=== PATIENT | male | born 1970 | race Caucasian/White ===

== ENCOUNTER 2017-04-21 12:15 | Emergency (ER) | payer MEDICAID ==
[~2017-04-21] VITALS: Ht 177.8 cm; Wt 111.1 kg
[~2017-04-21 12:15] MED LIST: HYDR-548 PO; IBUP-1955 PO; SULF1TAB47 PO
--- NOTE | 2017-04-21 12:33 | NUR ---
Dr Corral at the bedside for eval and exam..
[2017-04-21] MEDS ORDERED: IPRATROPIUM BROMIDE 0.5 MG/2.5 ML NEBU NEB ONE (12:45)
[2017-04-21] MEDS ORDERED: ALBUTEROL SULFATE 2.5 MG/3 ML NEBU NEB ONE (12:45)
[2017-04-21] MEDS ORDERED: IPRATROPIUM BROMIDE 0.5 MG/2.5 ML NEBU ONE (13:04)
[2017-04-21 13:22] VITALS: BP 144/91
--- NOTE | 2017-04-21 13:22 | NUR ---
Patient discharged to home in stable conditon. Written and verbal after care instructions given. Patient verbalizes understanding of instructions.
== END 2017-04-21 13:23 | disposition home or self-care (01) ==
LOC: ER 12:17
DX: J20.9 Acute bronchitis, unspecified (principal); I10 Essential (primary) hypertension; J45.909 Unspecified asthma, uncomplicated; F17.200 Nicotine dependence, unspecified, uncomplicated
CPT/HCPCS: 71010; 94640; 99283; A4663; J3590

== ENCOUNTER 2017-11-24 17:03 | Emergency (ER) | payer SELFPAY ==
[~2017-11-24] VITALS: Ht 177.8 cm; Wt 113.4 kg
--- NOTE | 2017-11-24 18:30 | NUR ---
Patient discharged to home in stable conditon. Written and verbal after care instructions given. Patient verbalizes understanding of instructions.
== END 2017-11-24 18:30 | disposition home or self-care (01) ==
LOC: ER 17:06
DX: G89.29 Other chronic pain (principal); M25.571 Pain in right ankle and joints of right foot; I10 Essential (primary) hypertension; J45.909 Unspecified asthma, uncomplicated; F17.210 Nicotine dependence, cigarettes, uncomplicated; F12.10 Cannabis abuse, uncomplicated; Z79.1 Long term (current) use of non-steroidal anti-inflammatories (NSAID); Z79.891 Long term (current) use of opiate analgesic; Z79.899 Other long term (current) drug therapy
CPT/HCPCS: 99281; A4663

== ENCOUNTER 2018-10-01 16:31 | Inpatient (IN) | payer MEDICAID ==
[~2018-10-01] VITALS: Ht 177.8 cm; Wt 111.1 kg
[~2018-10-01 16:31] MED LIST changes: +HYDR-4354 PO; -HYDR-548 PO
--- NOTE | 2018-10-01 16:31 | NUR ---
BIB DAUGHTER, PT AMBULATORY TO ROOM 2B.
--- NOTE | 2018-10-01 16:37 | NUR ---
DR. COREAS AT BEDSIDE SPEAKING WITH PT AND HIS DAUGHTER.
--- NOTE | 2018-10-01 16:40 | NUR ---
CODE STROKE ACTIVATED BY DR. COREAS.
[2018-10-01] MEDS ORDERED: IV NORMAL SALINE 1000 ML BAG IV ONE (16:45)
--- NOTE | 2018-10-01 16:45 | NUR ---
CALLED TELESTROKE LINE, REQUESTED INFORMATION PROVIDED, TO CALL BACK.
--- NOTE | 2018-10-01 16:47 | NUR ---
PT TO CT VIA [facility] WITH ACLS GUIDELINES IN PLACE.
[2018-10-01 16:49] LABS: BASOPHILS # (AUTO) 0.1 K/uL (0.0-8.0); BASOPHILS % (AUTO) 0.9 % (0.0-2.0); EOSINOPHILS # (AUTO) 0.5 K/uL (0.0-0.7); EOSINOPHILS % (AUTO) 3.2 % (0.0-7.0); HEMATOCRIT 50.3 % (36.7-47.1); HEMOGLOBIN 17.4 g/dL (12.5-16.3); LYMPHOCYTES # (AUTO) 4.7 K/uL (20.0-40.0); LYMPHOCYTES % (AUTO) 28.2 % (20.5-51.5); MEAN CORPUSCULAR HEMOGLOBIN 30.6 uug (23.8-33.4); MEAN CORPUSCULAR HGB CONC 35 g/dL (32.5-36.3); MEAN CORPUSCULAR VOLUME 88.4 fL (73.0-96.2); MONOCYTES # (AUTO) 1.4 K/uL (2.0-10.0); MONOCYTES % (AUTO) 8.3 % (0.0-11.0); NEUTROPHILS # (AUTO) 9.9 K/uL (1.8-8.9); NEUTROPHILS % (AUTO) 59.4 % (38.5-71.5); PLATELET COUNT (AUTO) 279 K/uL (152-348); RED BLOOD CELL COUNT(AUTO) 5.69 MIL/uL (4.06-5.63); WHITE BLOOD COUNT (AUTO) 16.7 K/uL (3.6-10.2)
--- NOTE | 2018-10-01 16:50 | NUR ---
DR. COREAS SPOKE WITH DR. RAYMOND (NEURO) VIA TELEPHONE.
--- NOTE | 2018-10-01 16:56 | NUR ---
PT BACK FROM CT.
[2018-10-01 16:59] LABS: CREATININE 1.1 mg/dL (0.6-1.3); POTASSIUM 3.9 mmol/L (3.5-5.1)
[2018-10-01 17:05] LABS: BILIRUBIN,DIRECT 0.2 mg/dL (0.0-0.2); BILIRUBIN,TOTAL 0.6 mg/dL (0.2-1.0); TOTAL PROTEIN, SERUM 7.5 g/dL (6.4-8.2)
--- NOTE | 2018-10-01 17:10 | NUR ---
DR. COREAS IS A BEDSIDE SPEAKING WITH PT, HIS DAUGHTER AND VIA TELENEUROLOGY FOR POSSIBLE TPA ADMINISTRATION.
[2018-10-01] MEDS ORDERED: SWABABLE VALVE TRANSFER SET EA MC ONE (17:21)
[2018-10-01] MEDS ORDERED: NORMAL SALINE FLUSH 10 ML DISP.SYRIN ONE (17:21)
[2018-10-01] MEDS ORDERED: IV NORMAL SALINE 250 ML IV ONE (17:22)
[2018-10-01] MEDS ORDERED: IOHEXOL 350 100 ML INFUS..BTL ONE (17:22)
--- NOTE | 2018-10-01 17:25 | NUR ---
AFTER SPEAKING WITH AND (VIA TELENEUROLOGY) THE PATIENT AND HIS DAUGHTER DECIDED TO POSTPONE TPA ADMINISTRATION. THEY WOULD LIKE TO DECIDE POST CTA.
--- NOTE | 2018-10-01 17:31 | NUR ---
PT TO CT FOR CTA VIA [facility] WITH ACLS GUIDELINES IN PLACE.
--- NOTE | 2018-10-01 17:44 | NUR ---
PT BACK FROM CTA, AT BEDSIDE.
[2018-10-01 18:04] LABS: ETHANOL < 3 MG/DL (0-0)
[2018-10-01] MEDS ORDERED: ASPIRIN 325 MG TABLET ONE (18:14)
[2018-10-01] MEDS ORDERED: ASPIRIN 325 MG TABLET PO ONE (18:15)
--- NOTE | 2018-10-01 18:37 | NUR ---
PT WAS EVALUATED BY NEUROLOGIST MD PETERS AND ER MD COREAS ONE MORE TIME. PT STATES HE FEELS MUCH BETTER NOW. CAN TALK IN FULL SENTENCES AND MOVE ALL FOUR EXTREMITIES WITHOUT LIMITATION. GAIT IS STABLE. NO SOB , NO N/V. PT DENIES PAIN.
--- NOTE | 2018-10-01 19:15 | NUR ---
REPORT GIVEN TO UZIEL LEE RISK TECH.
--- NOTE | 2018-10-01 19:26 | NUR ---
Received report from anatoly RN, assumed care of pt., bed in low position, neuro check performed - no deficits noted, pt. states he feels better, female brass sorter at bedside, bed in low position,
--- NOTE | 2018-10-01 19:51 | NUR ---
Report given to Alvin TRIPLETT,
--- NOTE | 2018-10-01 20:23 | NUR ---
Pt. taken off unit via stretcher, NAD
[2018-10-01] MEDS ORDERED: ACETAMINOPHEN 325 MG TABLET PO PRN (21:00)
[2018-10-01] MEDS ORDERED: SIMVASTATIN 40 MG TABLET PO SCH (21:00)
--- NOTE | 2018-10-01 21:00 | NUR ---
RECEIVED PT FROM THE ER. PATIENT IS AWAKE ORIENTED X4. PT SHOWS NO SIGNS OF ACUTE DISTRESS. PATIENT IV IS INTACT AND PATENT. SAFETY AND COMFORT PROVIDED. WILL CONTINUE TO MONITOR. NIHHS SCORE IS 0.
[2018-10-01 21:19] LABS: THYROID STIMULATING HORMONE 2.765 mIU/mL (0.358-3.740)
[2018-10-01] MEDS: BLOOD SUGAR DIAGNOSTIC 1 EACH STRIP VI SCH (21:52)
[2018-10-02 00:33] VITALS: BP 121/70
[2018-10-02 05:21] VITALS: BP 152/78
[2018-10-02 05:48] LABS: BASOPHILS % (AUTO) 0.4 % (0.0-2.0); EOSINOPHILS # (AUTO) 0.7 K/uL (0.0-0.7); EOSINOPHILS % (AUTO) 5.4 % (0.0-7.0); HEMOGLOBIN 17.1 g/dL (12.5-16.3); LYMPHOCYTES # (AUTO) 3.5 K/uL (20.0-40.0); MEAN CORPUSCULAR HEMOGLOBIN 30.4 uug (23.8-33.4); MEAN CORPUSCULAR HGB CONC 34 g/dL (32.5-36.3); MEAN CORPUSCULAR VOLUME 88.8 fL (73.0-96.2); MONOCYTES # (AUTO) 1.1 K/uL (2.0-10.0); MONOCYTES % (AUTO) 8.8 % (0.0-11.0); NEUTROPHILS # (AUTO) 7.2 K/uL (1.8-8.9); NEUTROPHILS % (AUTO) 57.4 % (38.5-71.5); PLATELET COUNT (AUTO) 274 K/uL (152-348); RED BLOOD CELL COUNT(AUTO) 5.63 MIL/uL (4.06-5.63); WHITE BLOOD COUNT (AUTO) 12.5 K/uL (3.6-10.2)
[2018-10-02 06:09] LABS: CREATININE 0.9 mg/dL (0.6-1.3); POTASSIUM 4.3 mmol/L (3.5-5.1)
[2018-10-02] MEDS: BLOOD SUGAR DIAGNOSTIC 1 EACH STRIP VI SCH ×3 (06:57→16:30)
--- NOTE | 2018-10-02 07:00 | NUR ---
PATIENT HAS SLEPT WELL AT NIGHT, NO SIGNS OF DISTRESS. NEURO STATUS IS UNCHANGED WITH NO DEFICITS, NIHHS SCORE IS 0. ATE A SANDWICH AND JELLO. AMBULATED TO THE BATHROOM WITHOUT ASSIST. STEADY GAIT. EDUCATED ABOUT DIET, SMOKING CESSATION, DIABETES FOLLOW UP WITH A PRIMARY MD. COMFORT AND SAFETY PROVIDED.
--- NOTE | 2018-10-02 08:00 | NUR ---
Pt is in no acute distress. NIHHS score of 0. Pt denies any c/o pain. Call light is within reach. Pt ambulates independently to bathroom. Awaiting hospitalist and neurologist to see patient.
[2018-10-02] MEDS ORDERED: ASPIRIN EC 81 MG TABLET.DR PO SCH (09:00)
--- NOTE | 2018-10-02 09:00 | NUR ---
Dr Mackay here to see patient. Pt ok for d/c when cleared by neuro and MRI done. [facility] will se pt after DR mackay.
[2018-10-02 11:09] LABS: *BILIRUBIN,URIN NEGATIVE (NEGATIVE); *BLOOD, URINE NEGATIVE (NEGATIVE); *CLARITY,URINE CLEAR (CLEAR); *COLOR,URINE YELLOW (YELLOW); *KETONES,URINE NEGATIVE (NEGATIVE); LEUKOCYTE ESTERASE ,URINE NEGATIVE (NEGATIVE); NITRITE, URINE NEGATIVE (NEGATIVE); UGLUCOSE 2+ (NEGATIVE)
[2018-10-02 11:11] LABS: BACTERIA,URINE FEW /HPF (NONE SEEN); RBC,URINE NONE SEEN /HPF (0-3); SQUAMOUS EPITHELIAL CELL,UR FEW /HPF (NONE SEEN); WBC,URINE NONE SEEN /HPF (0-3)
[2018-10-02 11:55] VITALS: BP 142/99
[2018-10-02] MEDS ORDERED: GADODIAMIDE 5 MMOL/10 ML VIAL ONE (12:00)
[2018-10-02] MEDS ORDERED: GADODIAMIDE 2.5 MMOL/5 ML VIAL ONE (12:00)
[2018-10-02] MEDS ORDERED: LISINOPRIL 10 MG TABLET PO SCH (12:00)
--- NOTE | 2018-10-02 12:00 | NUR ---
Dr pyle neuro saw pt and ok to d/c pt after MRI of brain is done. Call light is within reach.
[2018-10-02] MEDS ORDERED: SIMV40TA5 PO (12:04)
[2018-10-02] MEDS ORDERED: ASPI-618 PO (12:04)
[2018-10-02] MEDS ORDERED: LISI10TA5 PO (12:04)
--- NOTE | 2018-10-02 12:27 | NUR ---
TEXTED DR. RIOJAS FOR MRI APPROVAL.
[2018-10-02 15:13] VITALS: BP 143/98
--- NOTE | 2018-10-02 15:29 | NUR ---
Pt picked up by ambulance for MRI of brain W/WO contrast. Consent signed, MRI check list. IV patent on right f/a #18 no s/s of infiltration.
--- NOTE | 2018-10-02 16:30 | NUR ---
Pt ate dinner already refused bs check.
--- NOTE | 2018-10-02 17:10 | NUR ---
Call from dr Danielson [phone] Result of 10mm subacute infarct of right thalamus. Notified Dr Recio -neuro and Dr mackay Inventory Control Supervisor. Awaiting call back from both doctors.
--- NOTE | 2018-10-02 17:40 | NUR ---
Dr ewing spoke to patient about the MRI result to patient and pt still ok to be dc home per neurologist stand point. Dr Enriquez ok with pt going home as well.
--- NOTE | 2018-10-02 18:49 | NUR ---
Pt discharge. Valuables given back. Discussed risk factors for stroke with patient. Pt very receptive on informations given about diet plan from dietitian, smoking cessation, and side effects and purpose of pts new meds. Instructed pt on when to go to ER - Discussed BEFAST acronym for stroke with pt and family. Pt verbalized understanding. D/c IV. No sob noted. Pt is in no acute distress.
== END 2018-10-02 18:45 | disposition home or self-care (01) | DRG 47 ==
LOC: ER 16:33 → TELE3 19:51
DX: G45.9 Transient cerebral ischemic attack, unspecified (principal); E66.9 Obesity, unspecified; F12.90 Cannabis use, unspecified, uncomplicated; Z68.35 Body mass index [BMI] 35.0-35.9, adult; R29.810 Facial weakness; I10 Essential (primary) hypertension; R29.701 NIHSS score 1; M72.2 Plantar fascial fibromatosis; F17.210 Nicotine dependence, cigarettes, uncomplicated; J45.909 Unspecified asthma, uncomplicated; Z86.73 Personal history of transient ischemic attack (TIA), and cerebral infarction without residual deficits
CPT/HCPCS: 36415; 70030-TC; 70450; 70496; 70553; 71045; 84443; 85025; 85651; 85730; 87086; 93005; 93307; 97535; A4663; A9579; G0378; G0480; J3490; J7030; J7040; J7050; Q9967